=== PATIENT | female | born 1980 | race Caucasian/White ===

== ENCOUNTER 2020-10-31 13:04 | Observation (INO) | payer OTHER ==
[2020-10-31 14:18] LABS: Basophils # (A) 0.1 k/uL (0-0.2); Basophils % (A) 1 %; Eosinophils # (A) 0.2 k/uL (0-0.7); Eosinophils % (A) 3 %; HCT 35.3 % (34.0-46.0); HGB 12.1 gm/dL (11.4-16.0); Lymphocytes # (A) 1.8 k/uL (1.0-4.8); Lymphocytes % (A) 24 %; MCH 28.4 pg (25.0-35.0); MCHC 34.2 g/dL (31.0-37.0); Mean Platelet Volume 7.5; Monocytes # (A) 0.4 k/uL (0-1.0); Monocytes % (A) 6 %; Neutrophils # (A) 4.9 k/uL (1.3-7.7); Neutrophils % (A) 65 %; Platelet Count 429 k/uL (150-450); RBC 4.25 m/uL (3.80-5.40); RDW 12.9 % (11.5-15.5); WBC 7.5 k/uL (3.8-10.6)
[2020-10-31] MEDS: HYDROmorphone 0.5 MG/0.5 ML SYRINGE IVP PRN ×4 (14:18→21:53)
[2020-10-31] MEDS ORDERED: SODIUM CHLORIDE 0.9% 1,000 ML IV ONE (14:24)
--- NOTE | 2020-10-31 14:25 | ED ---
General Adult HPI - General Chief complaint: Abdominal Pain Stated complaint: Abd Pain Time Seen by Provider: 10/31/20 13:54 Source: patient, police, RN notes reviewed, old records reviewed Mode of arrival: ambulatory Limitations: no limitations - History of Present Illness Initial comments: 40-year-old female presents after receiving outpatient ultrasound for right upper quadrant pain, report was noted to show inflamed gallbladder. She's had pain for approximately 10 days with vomiting. No fever. No chronic medical conditions. Patient is currently incarcerated and is accompanied by local pipe changer. The initial ultrasound is not available for review. - Related Data Home Medications Medication Instructions Recorded Confirmed Albuterol Inhaler [Ventolin Hfa 2 puff INHALATION RT-BID PRN 10/31/20 10/31/20 Inhaler] OLANZapine [ZyPREXA] 2.5 mg PO HS 10/31/20 10/31/20 Ondansetron [Zofran] 4 mg PO TID PRN 10/31/20 10/31/20 Pantoprazole Sodium [Protonix] 40 mg PO DAILY 10/31/20 10/31/20 Allergies Allergy/AdvReac Type Severity Reaction Status Date / Time amoxicillin Allergy Anaphylaxis Verified 10/31/20 15:17 erythromycin base Allergy Anaphylaxis Verified 10/31/20 15:17 Penicillins Allergy Anaphylaxis Verified 10/31/20 15:17 Review of Systems ROS Statement: Those systems with pertinent positive or pertinent negative responses have been documented in the HPI. ROS Other: All systems not noted in ROS Statement are negative. Past Medical History Past Medical History: No Reported History History of Any Multi-Drug Resistant Organisms: None Reported Past Surgical History: Tubal Ligation Past Psychological History: Schizophrenia Smoking Status: Former smoker Past Alcohol Use History: None Reported Past Drug Use History: Marijuana General Exam Limitations: no limitations General appearance: alert, in no apparent distress Head exam: Present: atraumatic, normocephalic Eye exam: Present: normal appearance, PERRL ENT exam: Present: normal exam Neck exam: Present: normal inspection. Absent: tenderness, meningismus Respiratory exam: Present: normal lung sounds bilaterally. Absent: respiratory distress, wheezes Cardiovascular Exam: Present: regular rate, normal rhythm GI/Abdominal exam: Present: soft, tenderness (Epigastric and right upper quadrant tenderness). Absent: distended, guarding, rebound Extremities exam: Present: normal inspection, normal capillary refill. Absent: pedal edema Neurological exam: Present: alert, oriented X3, CN II-XII intact. Absent: motor sensory deficit Psychiatric exam: Present: normal affect, normal mood Skin exam: Present: warm, dry, intact. Absent: cyanosis, diaphoretic Course Vital Signs 10/31/20 13:10 Temperature 97.5 F L Pulse Rate 103 H Respiratory 16 Rate Blood Pressure 100/72 O2 Sat by Pulse 95 Oximetry Medical Decision Making - Medical Decision Making 40-year-old female with 10 days of right upper quadrant pain and vomiting. Patient is tender on exam, ultrasound performed showing a dilated gallbladder wall with sludge and small stones. The wall is 0.7 cm. There is a positive Kessler sign on ultrasound. Her labs are unremarkable. Pain controlled with hydromorphone in the emergency department. Started on antibiotics. Lactic to penicillins, she is given Levaquin and Flagyl. She will be kept nothing by mouth. Case discussed with general surgery, Dr. Gonzalez. - Lab Data Result diagrams: 10/31/20 14:06 10/31/20 14:06 Lab Results 10/31/20 10/31/20 10/31/20 Range/Units 14:06 14:06 14:06 WBC 7.5 (3.8-10.6) k/uL RBC 4.25 (3.80-5.40) m/uL Hgb 12.1 (11.4-16.0) gm/dL Hct 35.3 (34.0-46.0) % MCV 83.0 (80.0-100.0) fL MCH 28.4 (25.0-35.0) pg MCHC 34.2 (31.0-37.0) g/dL RDW 12.9 (11.5-15.5) % Plt Count 429 (150-450) k/uL MPV 7.5 Neutrophils % 65 % Lymphocytes % 24 % Monocytes % 6 % Eosinophils % 3 % Basophils % 1 % Neutrophils # 4.9 (1.3-7.7) k/uL Lymphocytes # 1.8 (1.0-4.8) k/uL Monocytes # 0.4 (0-1.0) k/uL Eosinophils # 0.2 (0-0.7) k/uL Basophils # 0.1 (0-0.2) k/uL PT 10.1 (9.0-12.0) sec INR 0.9 (<1.2) APTT 22.5 (22.0-30.0) sec Sodium 139 (137-145) mmol/L Potassium 4.6 (3.5-5.1) mmol/L Chloride 103 (98-107) mmol/L Carbon Dioxide 28 (22-30) mmol/L Anion Gap 8 mmol/L BUN 16 (7-17) mg/dL Creatinine 1.02 (0.52-1.04) mg/dL Est GFR (CKD-EPI)AfAm 80 (>60 ml/min/1.73 sqM) Est GFR (CKD-EPI)NonAf 69 (>60 ml/min/1.73 sqM) Glucose 107 H (74-99) mg/dL Plasma Lactic Acid Ra (0.7-2.0) mmol/L Calcium 9.7 (8.4-10.2) mg/dL Total Bilirubin 0.3 (0.2-1.3) mg/dL AST 18 (14-36) U/L ALT 12 (4-34) U/L Alkaline Phosphatase 65 (38-126) U/L Total Protein 7.1 (6.3-8.2) g/dL Albumin 4.1 (3.5-5.0) g/dL Amylase 75 (30-110) U/L Lipase 124 (23-300) U/L Urine Color Urine Appearance (Clear) Urine pH (5.0-8.0) Ur Specific [place] (1.001-1.035) Urine Protein (Negative) Urine Glucose (UA) (Negative) Urine Ketones (Negative) Urine Blood (Negative) Urine Nitrite (Negative) Urine Bilirubin (Negative) Urine Urobilinogen (<2.0) mg/dL Ur Leukocyte Esterase (Negative) Urine RBC (0-5) /hpf Urine WBC (0-5) /hpf Ur Squamous Epith Cells (0-4) /hpf Urine Bacteria (None) /hpf Hyaline Casts (0-2) /lpf Urine Mucus (None) /hpf 10/31/20 10/31/20 Range/Units 14:06 14:24 WBC (3.8-10.6) k/uL RBC (3.80-5.40) m/uL Hgb (11.4-16.0) gm/dL Hct (34.0-46.0) % MCV (80.0-100.0) fL MCH (25.0-35.0) pg MCHC (31.0-37.0) g/dL RDW (11.5-15.5) % Plt Count (150-450) k/uL MPV Neutrophils % % Lymphocytes % % Monocytes % % Eosinophils % % Basophils % % Neutrophils # (1.3-7.7) k/uL Lymphocytes # (1.0-4.8) k/uL Monocytes # (0-1.0) k/uL Eosinophils # (0-0.7) k/uL Basophils # (0-0.2) k/uL PT (9.0-12.0) sec INR (<1.2) APTT (22.0-30.0) sec Sodium (137-145) mmol/L Potassium (3.5-5.1) mmol/L Chloride (98-107) mmol/L Carbon Dioxide (22-30) mmol/L Anion Gap mmol/L BUN (7-17) mg/dL Creatinine (0.52-1.04) mg/dL Est GFR (CKD-EPI)AfAm (>60 ml/min/1.73 sqM) Est GFR (CKD-EPI)NonAf (>60 ml/min/1.73 sqM) Glucose (74-99) mg/dL Plasma Lactic Acid Ra 0.9 (0.7-2.0) mmol/L Calcium (8.4-10.2) mg/dL Total Bilirubin (0.2-1.3) mg/dL AST (14-36) U/L ALT (4-34) U/L Alkaline Phosphatase (38-126) U/L Total Protein (6.3-8.2) g/dL Albumin (3.5-5.0) g/dL Amylase (30-110) U/L Lipase (23-300) U/L Urine Color Yellow Urine Appearance Cloudy H (Clear) Urine pH 6.0 (5.0-8.0) Ur Specific [place] 1.022 (1.001-1.035) Urine Protein Trace H (Negative) Urine Glucose (UA) Negative (Negative) Urine Ketones Negative (Negative) Urine Blood Negative (Negative) Urine Nitrite Negative (Negative) Urine Bilirubin Negative (Negative) Urine Urobilinogen 2.0 (<2.0) mg/dL Ur Leukocyte Esterase Negative (Negative) Urine RBC <1 (0-5) /hpf Urine WBC 5 (0-5) /hpf Ur Squamous Epith Cells 5 H (0-4) /hpf Urine Bacteria Rare H (None) /hpf Hyaline Casts 1 (0-2) /lpf Urine Mucus Few H (None) /hpf Disposition Clinical Impression: Acute cholecystitis Disposition: ADMITTED IP TO THIS [facility] Condition: Stable Is patient prescribed a controlled substance at d/c from ED?: No Referrals: Margo Hein MD [Primary Care Provider] - 1-2 days Decision to Admit Reason: Admit from EC Decision Date: 10/31/20 Decision Time: 15:26
[2020-10-31 14:28] LABS: Albumin 4.1 g/dL (3.5-5.0); Calcium 9.7 mg/dL (8.4-10.2); Potassium 4.6 mmol/L (3.5-5.1); Total Bilirubin 0.3 mg/dL (0.2-1.3); Total Protein 7.1 g/dL (6.3-8.2)
[2020-10-31 14:31] LABS: INR 0.9 (<1.2); Partial Thromboplastin Time 22.5 sec (22.0-30.0); Prothrombin Time 10.1 sec (9.0-12.0)
[2020-10-31 14:39] LABS: Appearance,Urine Cloudy (Clear); Bacteria,Urine Rare /hpf; Bilirubin,Urine Negative (Negative); Blood,Urine Negative (Negative); Color,Urine Yellow; Glucose,Urine (UA) Negative (Negative); Hyaline Casts,Urine 1 /lpf (0-2); Ketones,Urine Negative (Negative); Leukocyte Esterase,Urine Negative (Negative); Mucus,Urine Few /hpf; Nitrite,Urine Negative (Negative); Protein,Urine Trace (Negative); RBC,Urine <1 /hpf (0-5); Specific Gravity,Urine 1.022 (1.001-1.035); Squamous Epithelial Cell,Urine 5 /hpf (0-4); WBC,Urine 5 /hpf (0-5)
--- NOTE | 2020-10-31 14:52 | US ---
EXAMINATION TYPE: US gallbladder DATE OF EXAM: 10/31/2020 COMPARISON: NONE CLINICAL HISTORY: ruq pain. Pain EXAM MEASUREMENTS: Liver Length: 12.6 cm Gallbladder Wall: .7 cm CBD: .5 cm Right Kidney: 10.2 x 3.4 x 4.8 cm Pancreas: Duct visualized 4 mm tail obscured by bowel gas. Liver: wnl Gallbladder: Echogenic foci visualized with low level echoes thickened wall. Evidence for sonographic Kessler's sign: Yes CBD: wnl Right Kidney: wnl IMPRESSION: 1. Gallbladder sludge with suspected tiny gallstones and wall thickening correlate for cholecystitis.
[2020-10-31] MEDS ORDERED: LEVOFLOXACIN 500MG-D5W PMX 500 MG in DEXTROSE/WATER 1 100ML.BAG IVPB STA (15:10)
[2020-10-31] MEDS ORDERED: metroNIDAZOLE-NS PMX 500 MG in SALINE 1 100ML.BAG IVPB STA (15:10)
[2020-10-31] MEDS ORDERED: NALOXONE 0.4 MG/ML 1 ML VIAL IV PRN (15:23)
[2020-10-31] MEDS: SODIUM CHLORIDE 0.9% 1,000 ML IV SCH (15:29)
[2020-11-01] MEDS: HYDROmorphone 0.5 MG/0.5 ML SYRINGE IVP PRN ×6 (01:47→23:09)
[2020-11-01] MEDS: SODIUM CHLORIDE 0.9% 1,000 ML IV SCH ×2 (04:38→17:46)
--- NOTE | 2020-11-01 12:12 | P.GSHP ---
History of Present Illness H&P Date: 11/01/20 Chief Complaint: Acute cholecystitis Patient presents to the ER yesterday afternoon from the [facility] with complaints of right upper quadrant pain. Pain gradually increasing over the last few days. Symptoms associated with nausea and anorexia. White blood cell count is normal. Liver enzymes normal. Ultrasound showed a thickened gallbladder wall with stones. She had a positive Kessler sign. - Review of Systems Comment: The patient denies any acute changes in vision or hearing, no dysphagia or odynophagia, no chest pain or shortness of breath, no dysuria or hematuria, no headache, no runny nose, no rectal bleeding or melena, no unexplained weight loss Past Medical History Past Medical History: No Reported History History of Any Multi-Drug Resistant Organisms: None Reported Past Surgical History: Tubal Ligation Past Anesthesia/Blood Transfusion Reactions: No Reported Reaction Past Psychological History: Schizophrenia Smoking Status: Former smoker Past Alcohol Use History: None Reported Past Drug Use History: Marijuana Medications and Allergies Home Medications Medication Instructions Recorded Confirmed Type Albuterol Inhaler [Ventolin Hfa 2 puff INHALATION RT-BID PRN 10/31/20 10/31/20 History Inhaler] OLANZapine [ZyPREXA] 2.5 mg PO HS 10/31/20 10/31/20 History Ondansetron [Zofran] 4 mg PO TID PRN 10/31/20 10/31/20 History Pantoprazole Sodium [Protonix] 40 mg PO DAILY 10/31/20 10/31/20 History Allergies Allergy/AdvReac Type Severity Reaction Status Date / Time amoxicillin Allergy Anaphylaxis Verified 10/31/20 15:17 erythromycin base Allergy Anaphylaxis Verified 10/31/20 15:17 Penicillins Allergy Anaphylaxis Verified 10/31/20 15:17 Surgical - Exam Vital Signs Temp Pulse Resp BP Pulse Ox 97.5 F L 103 H 16 100/72 95 10/31/20 13:10 10/31/20 13:10 10/31/20 13:10 10/31/20 13:10 10/31/20 13:10 Physical exam: General: Well-developed, well-nourished HEENT: Normocephalic, sclerae nonicteric Abdomen: Right upper quadrant tenderness, nondistended Extremities: No edema Neuro: Alert and oriented Results - Labs 10/31/20 14:06 10/31/20 14:06 Abnormal Lab Results - Last 24 Hours (Table) 10/31/20 10/31/20 Range/Units 14:06 14:24 Glucose 107 H (74-99) mg/dL Urine Appearance Cloudy H (Clear) Urine Protein Trace H (Negative) Ur Squamous Epith Cells 5 H (0-4) /hpf Urine Bacteria Rare H (None) /hpf Urine Mucus Few H (None) /hpf Diabetes panel 10/31/20 Range/Units 14:06 Sodium 139 (137-145) mmol/L Potassium 4.6 (3.5-5.1) mmol/L Chloride 103 (98-107) mmol/L Carbon Dioxide 28 (22-30) mmol/L BUN 16 (7-17) mg/dL Creatinine 1.02 (0.52-1.04) mg/dL Glucose 107 H (74-99) mg/dL Calcium 9.7 (8.4-10.2) mg/dL AST 18 (14-36) U/L ALT 12 (4-34) U/L Alkaline Phosphatase 65 (38-126) U/L Total Protein 7.1 (6.3-8.2) g/dL Albumin 4.1 (3.5-5.0) g/dL Calcium panel 10/31/20 Range/Units 14:06 Calcium 9.7 (8.4-10.2) mg/dL Albumin 4.1 (3.5-5.0) g/dL Pituitary panel 10/31/20 Range/Units 14:06 Sodium 139 (137-145) mmol/L Potassium 4.6 (3.5-5.1) mmol/L Chloride 103 (98-107) mmol/L Carbon Dioxide 28 (22-30) mmol/L BUN 16 (7-17) mg/dL Creatinine 1.02 (0.52-1.04) mg/dL Glucose 107 H (74-99) mg/dL Calcium 9.7 (8.4-10.2) mg/dL Adrenal panel 10/31/20 Range/Units 14:06 Sodium 139 (137-145) mmol/L Potassium 4.6 (3.5-5.1) mmol/L Chloride 103 (98-107) mmol/L Carbon Dioxide 28 (22-30) mmol/L BUN 16 (7-17) mg/dL Creatinine 1.02 (0.52-1.04) mg/dL Glucose 107 H (74-99) mg/dL Calcium 9.7 (8.4-10.2) mg/dL Total Bilirubin 0.3 (0.2-1.3) mg/dL AST 18 (14-36) U/L ALT 12 (4-34) U/L Alkaline Phosphatase 65 (38-126) U/L Total Protein 7.1 (6.3-8.2) g/dL Albumin 4.1 (3.5-5.0) g/dL Assessment and Plan (1) Acute cholecystitis Narrative/Plan: 40-year-old female with acute cholecystitis. Options reviewed. We'll proceed with laparoscopic, possible open cholecystectomy at this time. Risks of bleeding, infection, bile leak, bile duct injury, retained common bile duct stone, trocar injury, conversion to an open procedure, hernia, anesthesia related complications were reviewed. The patient understands and wishes to proceed. Current Visit: Yes Status: Acute Code(s): K81.0 - ACUTE CHOLECYSTITIS SNOMED Code(s): 58836065
[2020-11-01] MEDS ORDERED: LEVOFLOXACIN 500MG-D5W PMX 500 MG in DEXTROSE/WATER 1 100ML.BAG IVPB SCH (14:00)
[2020-11-01] MEDS ORDERED: ONDANSETRON 4 MG/2 ML VIAL IVP ONE (14:03)
[2020-11-01] MEDS ORDERED: DEXAMETHASONE SOD PHOSPHATE 10 MG/ML 1 ML VIAL IV ONE (14:05)
[2020-11-01] MEDS ORDERED: LABETALOL 5 MG/ML VIAL MDV ONE (14:20)
[2020-11-01] MEDS ORDERED: PHENYLEPHRINE-0.9% NACL SYG 1,000 MCG/10 ML SYRINGE ONE (14:20)
[2020-11-01] MEDS ORDERED: NEOSTIGMINE 1 MG/ML 10 ML VIAL ONE (14:20)
[2020-11-01] MEDS ORDERED: PROPOFOL 10 MG/ML 20 ML VIAL IV ONE (14:20)
[2020-11-01] MEDS ORDERED: HEPARIN SODIUM,PORCINE 5,000 UNIT/ML 1 ML VIAL ONE (14:20)
[2020-11-01] MEDS ORDERED: KETOROLAC 15 MG/ML 1 ML VIAL ONE (14:20)
[2020-11-01] MEDS ORDERED: ROCURONIUM 10 MG/ML (5 ML VIAL) IV ONE (14:20)
[2020-11-01] MEDS ORDERED: fentaNYL (PF) 50 MCG/ML 2 ML AMP ONE (14:20)
[2020-11-01] MEDS ORDERED: GLYCOPYRROLATE 0.2 MG/ML 2 ML VIAL ONE (14:20)
[2020-11-01] MEDS ORDERED: SUCCINYLCHOLINE CHLORIDE 100 MG/5 ML SYR IV ONE (14:20)
[2020-11-01] MEDS ORDERED: LIDOCAINE 1% INJ 10MG/ML (20 ML MDV) ONE (14:20)
[2020-11-01] MEDS ORDERED: MIDAZOLAM 2 MG/2 ML VIAL ONE (14:20)
[2020-11-01] MEDS ORDERED: IV FLUID CONTINUATION 1,000 ML IV ONE (14:25)
[2020-11-01] MEDS ORDERED: BUPIVACAINE (PF) 0.25% 30 ML VIAL SQ ONE ×2 (14:42→14:49)
[2020-11-01] MEDS ORDERED: traMADol 50 MG TAB PO PRN (16:06)
[2020-11-01] MEDS ORDERED: METOCLOPRAMIDE 5 MG/ML 2 ML VIAL IVP PRN (16:06)
[2020-11-01] MEDS ORDERED: ONDANSETRON 4 MG/2 ML VIAL IVP PRN (16:06)
--- NOTE | 2020-11-01 16:11 | P.OP ---
Date of Procedure: 11/01/20 Procedure(s) Performed: PREOPERATIVE DIAGNOSIS: Acute cholecystitis POSTOPERATIVE DIAGNOSIS: Same PROCEDURE: Laparoscopic cholecystectomy SURGEON: Carlos EBL: 50 mL ANESTHESIA: Gen. COMPLICATIONS: None OPERATIVE PROCEDURE: The patient was brought and placed on the operating room table in the supine position. The patient was placed under general anesthesia at that time. The abdomen was prepped and draped in the usual sterile fashion. A small vertical infraumbilical incision was made. The fascia was grasped with the Joseph forceps. The fascia was retracted anteriorly. The Veress needle was advanced into the peritoneal cavity. The saline drop test was normal. Insufflation took place up to 15 mmHg. A 5 mm optical trocar was advanced and the peritoneal cavity. 2 additional 5 mm trochars were placed in the right upper quadrant under direct visualization. A 12 mm trocar was advanced into the epigastric incision site. The gallbladder was acutely inflamed. Patient had adhesions between the omentum and the duodenal sweep to the gallbladder that were dissected bluntly. The patient's gallbladder wall was very thickened. We were finally able to visualize cystic artery and the cystic duct together. The cystic duct was somewhat short and was divided after the placement of a 2-0 Ethibond stitch tied down around the cystic duct using a tie knot device. An additional clip was placed on the patient's side as well. No clip was on the specimen side. The cystic artery was then divided using 12 mm clips. A small vessel was seen posterior and clipped as well. The gallbladder was then removed from the liver bed using electrocautery. The wall of the gallbladder posteriorly was very thickened as well. Small areas of bleeding were controlled using electrocautery. The gallbladder was then removed from the epigastric trocar site with an Endo Catch bag. This required significant lengthening of the fascial and skin opening. The gallbladder fossa was irrigated with saline. There was no evidence of any bleeding or biliary drainage seen. A drain was placed in the gallbladder fossa exiting from the most lateral 5 mm trocar site. This was sutured to the skin using a 3-0 silk stitch. The fascia at the 12 millimeter site was closed using a running 0 Vicryl stitch. The trochars were then removed. The skin at all 3 sites was closed using a 4-0 Monocryl stitch. Skin glue was utilized on the incision sites. At the end of this procedure the sponge and needle counts were correct. DISPOSITION: Stable to the recovery room
[2020-11-01] MEDS ORDERED: HYDROmorphone 0.5 MG/0.5 ML SYRINGE IVP ONE (16:23)
[2020-11-01] MEDS ORDERED: PROMETHAZINE INJ 25 MG/ML 1 ML VIAL IVPB ONE (16:30)
[2020-11-01] MEDS ORDERED: MEPERIDINE 50 MG/ML SYRINGE IVP ONE (16:39)
[2020-11-01] MEDS ORDERED: SODIUM CHLORIDE 0.9% 1,000 ML IV ONE ×2 (16:51)
[2020-11-01] MEDS: HEPARIN SODIUM,PORCINE/PF 5,000 UNIT/0.5 ML SYRINGE SQ SCH (17:48)
[2020-11-01] MEDS: CEFEPIME 2 GM in SODIUM CHLORIDE 0.9% 100 ML IVPB SCH (19:30)
[2020-11-02] MEDS: SODIUM CHLORIDE 0.9% 1,000 ML IV SCH ×3 (02:02→18:10)
[2020-11-02] MEDS: HYDROmorphone 0.5 MG/0.5 ML SYRINGE IVP PRN ×6 (02:24→22:00)
[2020-11-02] MEDS: HEPARIN SODIUM,PORCINE/PF 5,000 UNIT/0.5 ML SYRINGE SQ SCH ×3 (02:24→16:28)
[2020-11-02] MEDS: CEFEPIME 2 GM in SODIUM CHLORIDE 0.9% 100 ML IVPB SCH ×3 (02:25→16:28)
[2020-11-02] MEDS: PANTOPRAZOLE 40 MG/10 ML VIAL IV SCH (08:40)
--- NOTE | 2020-11-02 08:52 | CONS ---
CONSULTATION DATE OF SERVICE: 11/01/2020 REASON FOR FOLLOWUP: Acute cholecystitis with Gram-negative bacteremia. HISTORY OF PRESENT ILLNESS: The patient is a 40-year-old female currently at [facility] and this patient was sent to the ER yesterday for evaluation of the right upper quadrant pain. This patient's pain has been going on for almost 10-11 days. The patient described the pain to the right upper quadrant to be sharp pain intensity almost 7 to 8/10 and no radiation with some associated nausea but no vomiting. The patient did have an ultrasound done in the outpatient setting which did show cholecystitis. With these symptoms, the patient was evaluated by the ER physician. On arrival to the ER, the patient was afebrile. The patient did have a normal white count. Ultrasound of the gallbladder was suggestive of thickening correlate for cholecystitis. The patient was taken to the OR and is status post cholecystectomy. She did have blood cultures done showing Gram-negative bacilli. Because of her PENICILLIN ALLERGY, she has been treated with Levaquin. Infectious Disease was consulted for further management of antibiotic therapy. REVIEW OF SYSTEMS: Positive points have been mentioned in HPI. Rest of systems are negative. PAST MEDICAL HISTORY: Schizophrenia. PAST SURGICAL HISTORY: Tubal ligation. SOCIAL HISTORY: Remote history of smoking. Does admit to marijuana use. Currently in the [facility]. ALLERGIES: AMOXICILLIN AND PENICILLIN however has taken Keflex without any problem. MEDICATIONS: The patient is currently on heparin, Dilaudid, Reglan, Narcan, Zofran, Protonix and Levaquin. PHYSICAL EXAMINATION: Her blood pressure 147/87 with a pulse of 81, temperature 98.2. She is 99% on room air. General description: The patient is a middle-aged female lying in no distress. No tachypnea or accessory muscles of respiration use. HEENT: Examination shows no pallor or scleral icterus. Oral mucous membranes dry. NECK: Trachea central. No thyromegaly. LUNGS unlabored breathing. Clear to auscultation with no wheeze or crackles. HEART S1, S2. Regular rate and rhythm. ABDOMEN: Soft, tender in the right upper quadrant area. No guarding or rigidity. No organomegaly. EXTREMITIES: No edema of the feet. SKIN EXAMINATION: No rash or mass palpable. NEUROLOGICAL: The patient is awake, alert, oriented x3. Mood and affect normal. LABS: Hemoglobin is 12.1, hematocrit 7.5. BUN of 16, creatinine 1.02. Urine is negative. Moran PCR was negative. DIAGNOSTIC IMPRESSION AND PLAN: 1. Patient admitted to the hospital with abdominal pain and vomiting. Symptoms have been going on for 10 days. The patient did have an outpatient as well as inpatient cholecystitis status post cholecystectomy now with evidence of Gram-negative bacteremia likely secondary to enteric Gram-negative pathogen. 2. Patient with PENICILLIN ALLERGY that will limit the number of antibiotics safe to use. However has taken Keflex without any problem. PLAN: 1. Discontinue Levaquin. 2. We will start the patient on cefepime 2 grams q.8 hours. 3. We will follow on clinical condition and culture to further adjust medication if needed. Thank you for this consultation. Will follow this patient along with you. MILES / ANTWAN: [id number] / MTDTorey
[2020-11-02 09:11] LABS: Basophils # (A) 0.03 X 10*3/uL (0.00-0.10); Basophils % (A) 0.2 %; Eosinophils # (A) 0.01 X 10*3/uL (0.04-0.35); Eosinophils % (A) 0.1 %; HCT 31.5 % (37.2-46.3); HGB 10.3 g/dL (12.0-15.0); Lymphocytes # (A) 2.79 X 10*3/uL (0.90-5.00); Lymphocytes % (A) 22.8 %; MCH 28.1 pg (27.0-32.0); MCHC 32.7 g/dL (32.0-37.0); MCV 85.8 fL (80.0-97.0); Mean Platelet Volume 10.9 fL (9.5-12.2); Monocytes # (A) 0.74 X 10*3/uL (0.20-1.00); Neutrophils # (A) 8.63 X 10*3/uL (1.80-7.70); Neutrophils % (A) 70.4 %; Platelet Count 465 X 10*3/uL (140-440); RBC 3.67 X 10*6/uL (4.10-5.20); RDW 12.6 % (11.5-14.5); WBC 12.26 X 10*3/uL (4.50-10.00)
[2020-11-02 09:59] LABS: African American GFR (CKD) 106.9 (60.0-200.0); Albumin 3.5 g/dL (3.80-4.90); Albumin/Globulin Ratio 1.46 (1.60-3.17); Anion Gap 8.5 mmol/L (4.00-12.00); BUN/Creat Ratio 8.75 Ratio (12.00-20.00); Calcium 8.7 mg/dL (8.7-10.3); Carbon Dioxide 24.5 mmol/L (21.6-31.8); Globulin 2.4 g/dL (1.6-3.3); Non-African American GFR(CKD) 92.2 (60.0-200.0); Potassium 3.9 mmol/L (3.5-5.5); Total Bilirubin 0.2 mg/dL (0.2-1.2); Total Protein 5.9 g/dL (6.2-8.2)
--- NOTE | 2020-11-02 11:56 | P.PN ---
Subjective Progress Note Date: 11/02/20 Principal diagnosis: Acute cholecystitis Patient still having pain. Pain is somewhat better in the right upper quadrant but still present now on epigastric region. CHANTAL drain is serous and was. Labs noted. Blood cultures were positive preoperatively. Objective - Vital Signs Vital signs: Vital Signs Temp 99.1 F 11/02/20 07:00 Pulse 87 11/02/20 07:00 Resp 16 11/02/20 07:00 BP 131/84 11/02/20 07:00 Pulse Ox 96 11/02/20 07:00 Intake & Output 11/01/20 11/02/20 11/02/20 18:59 06:59 18:59 Intake Total 1100 118 Output Total 25 Balance 1075 118 Weight 73.028 kg Intake: IV 1100 Oral 118 Output: Estimated Blood Loss 25 Other: Voiding Method Toilet Toilet # Voids 2 - Exam Abdomen: Soft, nondistended, mild tenderness, incisions clean and dry - Labs CBC & Chem 7: 11/02/20 06:14 11/02/20 06:14 Labs: Abnormal Lab Results - Last 24 Hours (Table) 11/02/20 11/02/20 Range/Units 06:14 06:14 WBC 12.26 H (4.50-10.00) X 10*3/uL RBC 3.67 L (4.10-5.20) X 10*6/uL Hgb 10.3 L (12.0-15.0) g/dL Hct 31.5 L (37.2-46.3) % Plt Count 465 H (140-440) X 10*3/uL Immature Gran # 0.06 H (0.00-0.04) X 10*3/uL Neutrophils # 8.63 H (1.80-7.70) X 10*3/uL Eosinophils # 0.01 L (0.04-0.35) X 10*3/uL BUN 7.0 L (9.0-27.0) mg/dL BUN/Creatinine Ratio 8.75 L (12.00-20.00) Ratio Total Protein 5.9 L (6.2-8.2) g/dL Albumin 3.50 L (3.80-4.90) g/dL Albumin/Globulin Ratio 1.46 L (1.60-3.17) g/dL Microbiology - Last 24 Hours (Table) 10/31/20 15:24 Blood Culture Gram Stain - Preliminary Blood Blood Culture - Preliminary Coagulase Negative Staph 10/31/20 15:24 Blood Culture - Final Blood 10/31/20 15:24 Blood Culture Gram Stain - Preliminary Blood 10/31/20 15:24 Blood Culture - Final Blood Assessment and Plan (1) Acute cholecystitis Narrative/Plan: Overall patient doing fairly well. We'll add Toradol and Tylenol for pain. Advance diet to full liquids. Continue IV antibiotics for bacteremia. Current Visit: Yes Status: Acute Code(s): K81.0 - ACUTE CHOLECYSTITIS SNOMED Code(s): 77356832
[2020-11-02] MEDS: KETOROLAC 15 MG/ML 1 ML VIAL IVP SCH ×2 (12:06→18:08)
[2020-11-02] MEDS: ACETAMINOPHEN TAB 325 MG TAB PO PRN ×2 (12:07→18:09)
--- NOTE | 2020-11-02 19:22 | PN ---
PROGRESS NOTE DATE OF SERVICE: 11/02/2020 REASON FOR FOLLOWUP: 1. Bacteremia. 2. Cholecystitis. INTERVAL HISTORY: Patient is afebrile. The patient is breathing comfortably. The patient right upper quadrant pain has improved. Some pain in the epigastric area. No chest pain, shortness of breath or cough. No diarrhea. The patient has been incarcerated for the last 35 days and denies any history of IV drug use. PHYSICAL EXAMINATION: Blood pressure 102/66, pulse of 95, temperature 98.9. She is 97% on room air. General description: The patient is a middle-aged female lying in bed in no distress. Respiratory system: Unlabored breathing, clear to auscultation anteriorly. Heart S1, S2. Regular rate and rhythm. ABDOMEN: Soft, no tenderness. No edema of the feet. LABS: White count is up to 12.9. Blood culture has been finalized with Staph epi DIAGNOSTIC IMPRESSION AND PLAN: 1. Patient admitted to the hospital with abdominal pain with abnormal ultrasound suggestive of cholecystitis status post laparoscopic cholecystectomy. Patient does have PENICILLIN ALLERGY, tolerated cephalosporin, to continue with cefepime. Finish therapy with oral antibiotic. 2. Positive blood culture with Staph epi bacilli, more likely skin contaminant. Blood cultures repeat to document it and repeat CBC tomorrow. MMODL / IJN: [id number] / CARMINE
[2020-11-03] MEDS: HYDROmorphone 0.5 MG/0.5 ML SYRINGE IVP PRN ×5 (01:44→17:24)
[2020-11-03] MEDS: CEFEPIME 2 GM in SODIUM CHLORIDE 0.9% 100 ML IVPB SCH ×3 (01:45→16:17)
[2020-11-03] MEDS: HEPARIN SODIUM,PORCINE/PF 5,000 UNIT/0.5 ML SYRINGE SQ SCH ×3 (01:45→16:18)
[2020-11-03] MEDS: KETOROLAC 15 MG/ML 1 ML VIAL IVP SCH ×4 (01:45→19:51)
[2020-11-03] MEDS: SODIUM CHLORIDE 0.9% 1,000 ML IV SCH ×2 (04:29→14:13)
[2020-11-03 08:47] LABS: Basophils # (A) 0.04 X 10*3/uL (0.00-0.10); Basophils % (A) 0.5 %; Eosinophils # (A) 0.35 X 10*3/uL (0.04-0.35); Eosinophils % (A) 4.4 %; HGB 9.7 g/dL (12.0-15.0); Lymphocytes # (A) 3.39 X 10*3/uL (0.90-5.00); Lymphocytes % (A) 42.5 %; MCHC 31.3 g/dL (32.0-37.0); MCV 89.6 fL (80.0-97.0); Monocytes % (A) 8.8 %; Neutrophils # (A) 3.44 X 10*3/uL (1.80-7.70); Neutrophils % (A) 43.2 %; Platelet Count 413 X 10*3/uL (140-440); RBC 3.46 X 10*6/uL (4.10-5.20); WBC 7.97 X 10*3/uL (4.50-10.00)
[2020-11-03] MEDS: PANTOPRAZOLE 40 MG/10 ML VIAL IV SCH (09:24)
[2020-11-03 09:27] LABS: African American GFR (CKD) 125.6 (60.0-200.0); BUN/Creat Ratio 12.86 Ratio (12.00-20.00); Calcium 8.4 mg/dL (8.7-10.3); Non-African American GFR(CKD) 108.4 (60.0-200.0); Potassium 4.5 mmol/L (3.5-5.5)
[2020-11-03 10:05] LABS: C Reactive Protein 1.9 mg/dL (0.0-0.8)
--- NOTE | 2020-11-03 11:13 | P.PN ---
<Sarai Venegas - Last Filed: 11/03/20 10:42> Subjective Progress Note Date: 11/03/20 CHIEF COMPLAINT: Acute cholecystitis HISTORY OF PRESENT ILLNESS: Patient is status post laparoscopic cholecystectomy. She is complaining of pain in the right upper quadrant and epigastric area. She reports that the pain is not worse than yesterday. She is passing gas. Denies any nausea or vomiting. She is tolerating a full liquid diet. She is requesting advancement of her diet. CHANTAL drain with 20 mL of serosanguineous output. Afebrile. White count has normalized at 7.97 hemoglobin 9.7 platelets 413 C-reactive protein 1.9 second blood culture growing coagulase-negative staph PHYSICAL EXAM: VITAL SIGNS: Reviewed. GENERAL: Well-developed in no acute distress. HEENT: No sclera icterus. Extraocular movements grossly intact. Moist buccal mucosa. Head is atraumatic, normocephalic. ABDOMEN: Soft. Nondistended. Mild tenderness at the epigastric incision. Incision sites clean dry and intact. Minimal bruising noted around epigastric incision. CHANTAL drain on the right with serosanguineous output NEUROLOGIC: Alert and oriented. Cranial nerves II through XII grossly intact. ASSESSMENT: 1. Acute cholecystitis status post laparoscopic cholecystectomy 2. Bacteremia PLAN: -Advance diet to regular -Encouraged patient to use incentive spirometer -Encouraged patient to ambulate -Antibiotics per ID -Pain medication as needed -GI prophylaxis Protonix and DVT prophylaxis subcu heparin Physician Plexiglas Former note has been reviewed by physician. Signing provider agrees with the documented findings, assessment, and plan of care. Objective - Vital Signs Vital signs: Vital Signs Temp 97.9 F 11/03/20 07:00 Pulse 68 11/03/20 07:00 Resp 18 11/03/20 07:00 BP 110/69 11/03/20 07:00 Pulse Ox 97 11/03/20 07:00 Intake & Output 11/02/20 11/03/20 11/03/20 18:59 06:59 18:59 Intake Total 756 Output Total 20 Balance 736 Intake: Oral 756 Output: Drainage 20 Right Lower Anterior 20 Abdomen Other: Voiding Method Toilet Toilet Toilet # Voids 5 2 - Labs CBC & Chem 7: 11/03/20 05:40 11/03/20 05:40 Labs: Abnormal Lab Results - Last 24 Hours (Table) 11/03/20 11/03/20 Range/Units 05:40 05:40 RBC 3.46 L (4.10-5.20) X 10*6/uL Hgb 9.7 L (12.0-15.0) g/dL Hct 31.0 L (37.2-46.3) % MCHC 31.3 L (32.0-37.0) g/dL Immature Gran # 0.05 H (0.00-0.04) X 10*3/uL Calcium 8.4 L (8.7-10.3) mg/dL C-Reactive Protein 1.9 H (0.0-0.8) mg/dL Microbiology - Last 24 Hours (Table) 10/31/20 15:24 Blood Culture Gram Stain - Final Blood Blood Culture - Final Coagulase Negative Staph Coagulase Negative Staph#2 10/31/20 15:24 Blood Culture Gram Stain - Final Blood Blood Culture - Final Coagulase Negative Staph Bacillus species <Wei Gonzalez - Last Filed: 11/03/20 15:27> Subjective As above. See discharge summary Objective - Vital Signs Vital signs: Vital Signs Temp 97.9 F 11/03/20 15:00 Pulse 73 11/03/20 15:00 Resp 18 11/03/20 15:00 BP 101/66 11/03/20 15:00 Pulse Ox 96 11/03/20 15:00 Intake & Output 11/02/20 11/03/20 11/03/20 18:59 06:59 18:59 Intake Total 756 Output Total 20 Balance 736 Intake: Oral 756 Output: Drainage 20 Right Lower Anterior 20 Abdomen Other: Voiding Method Toilet Toilet Toilet # Voids 5 2 2 - Labs CBC & Chem 7: 11/03/20 05:40 11/03/20 05:40 Labs: Abnormal Lab Results - Last 24 Hours (Table) 11/03/20 11/03/20 Range/Units 05:40 05:40 RBC 3.46 L (4.10-5.20) X 10*6/uL Hgb 9.7 L (12.0-15.0) g/dL Hct 31.0 L (37.2-46.3) % MCHC 31.3 L (32.0-37.0) g/dL Immature Gran # 0.05 H (0.00-0.04) X 10*3/uL Calcium 8.4 L (8.7-10.3) mg/dL C-Reactive Protein 1.9 H (0.0-0.8) mg/dL Microbiology - Last 24 Hours (Table) 10/31/20 15:24 Blood Culture Gram Stain - Final Blood Blood Culture - Final Coagulase Negative Staph Coagulase Negative Staph#2 10/31/20 15:24 Blood Culture Gram Stain - Final Blood Blood Culture - Final Coagulase Negative Staph Bacillus species Assessment and Plan (1) Acute cholecystitis Current Visit: Yes Status: Acute Code(s): K81.0 - ACUTE CHOLECYSTITIS SNOMED Code(s): 09286231
--- NOTE | 2020-11-03 15:28 | P.DS ---
Providers Date of admission: 11/03/20 09:06 Expected date of discharge: 11/03/20 Attending physician: Wei Gonzalez Consults: 11/01/20 14:32 Consult Physician Routine Consulting Provider: Maria L Diehl Consult Reason/Comments: gram negative bacilli in blood culture Do you want consulting provider notified?: Yes Primary care physician: Margo Hein - Discharge Diagnosis(es) (1) Acute cholecystitis Patient doing well today. His pain is improved. CHANTAL drain serosanguineous. She was admitted with acute cholecystitis. Underwent laparoscopic cholecystectomy with drain placement. She did have a positive culture in her blood which may have been contaminated. Please refer to infectious disease consultation. She will be discharged on Tylenol and Motrin for pain. She may require outpatient antibiotics. Will review with Dr. Diehl. Patient will have her drain removed. Follow-up 2 weeks. Low-fat diet post discharge. Current Visit: Yes Status: Acute Patient Condition at Discharge: Stable Plan - Discharge Summary Discharge Rx Participant: No New Discharge Prescriptions: No Action Pantoprazole Sodium [Protonix] 40 mg PO DAILY Albuterol Inhaler [Ventolin Hfa Inhaler] 2 puff INHALATION RT-BID PRN PRN Reason: Shortness Of Breath OLANZapine [ZyPREXA] 2.5 mg PO HS Ondansetron [Zofran] 4 mg PO TID PRN PRN Reason: Nausea Discharge Medication List Albuterol Inhaler [Ventolin Hfa Inhaler] 2 puff INHALATION RT-BID PRN 10/31/20 [History] OLANZapine [ZyPREXA] 2.5 mg PO HS 10/31/20 [History] Ondansetron [Zofran] 4 mg PO TID PRN 10/31/20 [History] Pantoprazole Sodium [Protonix] 40 mg PO DAILY 10/31/20 [History] Follow up Appointment(s)/Referral(s): Margo Hein MD [Primary Care Provider] - 1-2 days
[2020-11-03] MEDS: ACETAMINOPHEN TAB 325 MG TAB PO PRN (16:18)
--- NOTE | 2020-11-03 18:10 | PN ---
PROGRESS NOTE DATE: 11/03/2020 REASON FOR FOLLOWUP: 1. Acute cholecystitis. 2. Positive blood culture, likely contamination. INTERVAL HISTORY: Patient was seen this morning. The patient has been afebrile. The patient has chronic abdominal pain that has improved. Denies having any chest pain, shortness of breath or cough. No nausea, vomiting or diarrhea. PHYSICAL EXAMINATION: Blood pressure 101/56, pulse of 93, temperature 97.9. General description is a middle- aged female lying in bed in no distress. Respiratory system: Unlabored breathing, clear to auscultation anteriorly. Heart S1, S2. Regular rate. Abdomen: Soft, no tenderness. Extremities no edema. LAB: Repeat culture currently pending. The patient's white count has normalized. DIAGNOSTIC IMPRESSION AND PLAN: 1. Patient with acute cholecystitis status post cholecystectomy. The patient did have penicillin and amoxicillin, and did well on the cephalosporin. Will give a short course of oral Cipro on discharge to finish her course of therapy. 2. Positive blood culture, likely skin contamination. MMODL / IJN: [id number] /
[2020-11-03 19:17] VITALS: BP 103/66; PULSE 83; RESP 17; TEMP 98.2
[2020-11-04] MEDS ORDERED: PANTOPRAZOLE 40 MG TABLET PO SCH (09:00)
== END 2020-11-03 20:30 ==
LOC: EC 13:04 → 6NMEDSUR 15:23 → OBSVTOIN 11-03 09:06 → INTOOBSV 11-03 09:06 → UNDODISIN 11-03 20:30
PROVIDERS: ADMIT Surgery; ATTEND Surgery
PROC: 0FT44ZZ Resection of Gallbladder, Percutaneous Endoscopic Approach (ICD-10-PCS; principal; 2020-11-01 11:00)
DX: K80.12 Calculus of gallbladder with acute and chronic cholecystitis without obstruction (principal); B96.89 Other specified bacterial agents as the cause of diseases classified elsewhere; J45.909 Unspecified asthma, uncomplicated; F20.9 Schizophrenia, unspecified; Z20.822 Contact with and (suspected) exposure to COVID-19; Z79.899 Other long term (current) drug therapy; Z88.0 Allergy status to penicillin; Z88.1 Allergy status to other antibiotic agents; Z98.51 Tubal ligation status; Z87.891 Personal history of nicotine dependence
CPT/HCPCS: 47562; 96376 ×3; 96374; 99285; 36415; 88304; 80053 ×2; 80048; 82150; 83605; 83690; 85025 ×3; 85610; 85730; 86140; 81001; 81025; 87040 ×2; 87635; 76705; G0378 ×4; J2250; J1644 ×4; J1100; J2550; J2710; J2175; J2405; J1956 ×2; J2001; J0692 ×3; J3010; J1885 ×3; J2370; J0330; J2704; C9113 ×2; J1170 ×4

== ENCOUNTER → 2023-10-26 | Outpatient (CLI) | payer BC ==
--- NOTE | 2023-10-26 10:39 | MM ---
Reason for Exam: Clinical finding. Patient History: Menarche at age 13. First Full-Term at age 21. Postmenopausal. Paternal grandmother had breast cancer. Risk Values: Yue 5 year model risk: 0.6%. NCI Lifetime model risk: 8.9%. Prior Study Comparison: No prior studies available for comparison. Tissue Density: There are scattered areas of fibroglandular density. Findings: Analyzed By CAD. 8 mm circumscribed mass lower inner quadrant right breast anterior to middle depth for which further ultrasound evaluation is recommended. This corresponds to the patient's palpable site. No suspicious microcalcification or other discrete abnormality is seen. Overall Assessment: Incomplete: need additional imaging evaluation, BI-RAD 0 Management: Diagnostic Breast Ultrasound of the right breast. Electronically signed and approved by: Cher Millan M.D. Radiologist
--- NOTE | 2023-10-26 10:55 | USB ---
Reason for Exam: Clinical finding. Patient History: Menarche at age 13. First Full-Term at age 21. Postmenopausal. Paternal grandmother had breast cancer. Risk Values: Yue 5 year model risk: 0.6%. NCI Lifetime model risk: 8.9%. Technique: Method: Targeted. Findings: The lower inner quadrant of the right breast, the axilla of the right breast and the retroareolar of the right breast were scanned. Targeted ultrasound to the patient's history clot palpable site, 2 cm from the nipple. Additional scanning subareolar region and axilla. At the patient's palpable site, there is a rounded mixed echogenicity, partially cystic lesion measuring 7 x 6 x 4 mm. Posterior through transmission. Slightly more echogenic in oblique orientation. Given superficial location and some associated skin discoloration, sequela of injury with small hematoma is favored. 3 month follow-up to assess for involution. No other solid or cystic lesion or axillary lymphadenopathy. Overall Assessment: Probably benign, BI-RAD 3 Management: Diagnostic Mammogram of the right breast in 3 months. For the suspected small soft tissue hematoma. A clinical breast exam by your physician is recommended on an annual basis and results should be correlated with mammographic findings. This exam should not preclude additional follow-up of suspicious palpable abnormalities. Results were given to the patient verbally at the time of exam. Electronically signed and approved by: Cher Millan M.D. Radiologist
== END | disposition home or self-care (01) ==
LOC: RADMAMWWP 10:11
PROVIDERS: ATTEND Internal Medicine
DX: R92.323 Mammographic fibroglandular density, bilateral breasts (principal); Z78.0 Asymptomatic menopausal state; Z80.3 Family history of malignant neoplasm of breast
CPT/HCPCS: 77062; 77066